=== PATIENT | male | born 1995 | race Caucasian/White ===

== ENCOUNTER 2024-07-06 20:23 | Emergency (ER) | payer SELFPAY ==
[~2024-07-06] VITALS: Ht 172.7 cm; Wt 90.0 kg
[2024-07-06 20:32] VITALS: BP 158/92; PULSE 100; RESP 16; O2SAT 99
== END 2024-07-06 21:11 | disposition left against medical advice (07) ==
LOC: ER 20:23
DX: R51.9 Headache, unspecified (principal); Z53.21 Procedure and treatment not carried out due to patient leaving prior to being seen by health care provider